=== PATIENT | female | born 1970 | race Caucasian/White ===

== ENCOUNTER → 2021-03-06 | Outpatient (CLI) | payer BC ==
[~2021-03-06] MED LIST: NORFLEX 100 MG100 MG PO; ZOFRAN4 MG PO
== END ==
LOC: KOH-I 13:20
DX: R05 Cough (principal); R91.8 Other nonspecific abnormal finding of lung field
CPT/HCPCS: 71046

== ENCOUNTER → 2021-07-04 | Outpatient (CLI) | payer BC | LOC: KOH-I 14:53 | DX: M47.26 Other spondylosis with radiculopathy, lumbar region (principal) | CPT/HCPCS: 72110 ==

== ENCOUNTER → 2021-07-11 | Outpatient (CLI) | payer BC | LOC: KOH-I 14:00 | DX: R09.89 Other specified symptoms and signs involving the circulatory and respiratory systems (principal); M79.606 Pain in leg, unspecified | CPT/HCPCS: 93922; 93925 ==

== ENCOUNTER → 2021-07-19 | Outpatient (CLI) | payer BC | LOC: KOH-I 13:28 | DX: M43.16 Spondylolisthesis, lumbar region (principal); M79.606 Pain in leg, unspecified; M51.16 Intervertebral disc disorders with radiculopathy, lumbar region | CPT/HCPCS: 72148 ==